=== PATIENT | female | born 1965 | race Caucasian/White ===

== ENCOUNTER 2021-02-28 16:04 | Outpatient (CLI) | payer BC ==
[2021-02-28 17:31] LABS: #Basophils 0.1 10x3/uL (0.0-0.2); #Eosinphils 0.4 10x3/uL (0.0-0.5); #Monocytes 0.6 10x3/uL (0.0-1.1); %Basophils 0.5 % (0.0-2.0); %Eosinophils 4.1 % (0.0-6.0); %Lymphocytes 23.7 % (18.0-47.0); %Monocytes 6.8 % (0.0-10.0); %Neutrophils 64.5 % (40.0-75.0); Hemoglobin 13.8 g/dL (12.0-15.5); Mean Corpuscular HGB CONC 33.7 g/dL (32.0-36.0); Mean Corpuscular Volume 89.1 fl (81.6-98.3); Mean Platelet Volume 11.9 fl (7.4-10.4); Platelet Count 265 10x3/uL (150-450); RBC Distribution Width 13.6 % (11.5-14.5); White Blood Cell (WBC) Count 9.2 10x3/uL (3.5-10.5)
[2021-02-28 17:34] LABS: Bilirubin Neg (Negative); Blood, Urine Negative (Negative); Glucose, Urine (Dipstick) 250 mg/dL (Negative); Ketone, Urine Negative (Negative); Leukocyte 25 (Negative); Nitrite Negative (Negative); Protein, Urine (Dipstick) Negative (Neg-Trace); Specific Gravity, Urine 1.005 (1.002-1.036); Urobilinogen Normal mg/dL (Less than 2); pH, Urine 6.5 (5.0-9.0)
[2021-02-28 17:40] LABS: Clarity Clear (Clear)
[2021-02-28 17:44] LABS: Anion Gap 13 mmol/L (10-20); BUN (Urea Nitrogen) 10 mg/dL (9.8-20.1); Calc. Creatinine Clearance 0 mL/min (70-130); Calcium 9.5 mg/dL (7.8-10.44); Carbon Dioxide 25 mmol/L (22-29); Chloride 104 mmol/L (98-107); Glucose 196 mg/dL (70-105); Sodium 138 mmol/L (136-145)
[2021-03-01 12:10] LABS: SARS-CoV-2 PCR by NAA Not Detected (NotDetected)
== END 2021-02-28 16:05 | disposition home or self-care (01) ==
LOC: LABBT 16:04
PROVIDERS: ATTEND Orthopaedic Surgery Hand Surgery
DX: Z01.818 Encounter for other preprocedural examination (principal); M65.331 Trigger finger, right middle finger; M65.311 Trigger thumb, right thumb; Z20.822 Contact with and (suspected) exposure to COVID-19
CPT/HCPCS: 80048; 81003; 85025; 93005; 93010; U0003; U0005

== ENCOUNTER 2021-03-04 11:20 | Day surgery (SDC) | payer BC ==
[2021-02-28 14:49] VITALS: BMI 41.3
[2021-03-04] MEDS ORDERED: Bupivacaine PF 0.5% 30 ML VIAL ONE (13:26)
[2021-03-04] MEDS ORDERED: Bacitracin Zinc Ointment 30 gm TUBE ONE (13:26)
[2021-03-04] MEDS ORDERED: Neomycin-Polymyxin 1 ML AMP ONE (13:26)
[2021-03-04] MEDS ORDERED: Betamet Acet/Betamet Na Ph 30 MG/5 ML VIAL ONE (13:26)
[2021-03-04] MEDS ORDERED: Midazolam HCl 2 mg/2 ml Vial ONE (13:31)
[2021-03-04] MEDS ORDERED: Fentanyl 100 MCG/2 ML VIAL ONE (13:31)
[2021-03-04] MEDS ORDERED: PROPOFOL 200 MG/20 ML VIAL ONE (13:53)
[2021-03-04] MEDS ORDERED: Lidocaine 1% PF 5 ML VIAL ONE (13:53)
[2021-03-04] MEDS ORDERED: Ketorolac Tromethamine 30 MG/ML VIAL ONE (15:01)
[2021-03-04] MEDS ORDERED: Ondansetron PF 4 MG/2 ML Vial ONE (16:11)
== END 2021-03-04 16:34 | disposition home or self-care (01) ==
LOC: SDC 11:20
PROVIDERS: ATTEND Orthopaedic Surgery Hand Surgery
PROC: 0JNJ0ZZ Release Right Hand Subcutaneous Tissue and Fascia, Open Approach (ICD-10-PCS; principal; 2021-03-04)
PROC: 0LN70ZZ Release Right Hand Tendon, Open Approach (ICD-10-PCS; principal; 2021-03-04)
DX: M72.0 Palmar fascial fibromatosis [Dupuytren] (principal); M65.311 Trigger thumb, right thumb; M65.841 Other synovitis and tenosynovitis, right hand; M65.331 Trigger finger, right middle finger; I10 Essential (primary) hypertension; E11.9 Type 2 diabetes mellitus without complications; E03.9 Hypothyroidism, unspecified; M19.90 Unspecified osteoarthritis, unspecified site; K50.90 Crohn's disease, unspecified, without complications; G43.109 Migraine with aura, not intractable, without status migrainosus; Z79.84 Long term (current) use of oral hypoglycemic drugs; Z79.899 Other long term (current) drug therapy; Z88.8 Allergy status to other drugs, medicaments and biological substances
CPT/HCPCS: 88304; J0690; J0702; J1885; J2250; J2405; J2704; J3010; S0020

== ENCOUNTER 2021-09-09 14:10 | Outpatient (CLI) | payer BC, OTHER | END 2021-09-09 14:11 | disposition home or self-care (01) | LOC: DTY/OP 14:10 | PROVIDERS: ATTEND Specialist | DX: Z01.818 Encounter for other preprocedural examination (principal); E66.01 Morbid (severe) obesity due to excess calories | CPT/HCPCS: 97802 ==

== ENCOUNTER 2023-03-10 09:36 | Outpatient (CLI) | payer BC, OTHER | END 2023-03-10 09:37 | disposition home or self-care (01) | LOC: DTY/OP 09:36 | PROVIDERS: ATTEND Specialist | DX: E66.01 Morbid (severe) obesity due to excess calories (principal) | CPT/HCPCS: 97802 ==

== ENCOUNTER 2025-07-12 13:48 | Outpatient (CLI) | payer OTHER | END 2025-07-12 13:49 | disposition home or self-care (01) | LOC: BICRAD 13:48 | PROVIDERS: ATTEND Internal Medicine | DX: Z02.71 Encounter for disability determination (principal); M17.11 Unilateral primary osteoarthritis, right knee; M77.8 Other enthesopathies, not elsewhere classified; Z96.649 Presence of unspecified artificial hip joint ==